=== PATIENT | male | born 1945 | race Caucasian/White ===

== ENCOUNTER 2017-09-18 22:37 | Inpatient (IN) | payer MEDICARE ==
[~2017-09-18] VITALS: Ht 182.9 cm; Wt 149.7 kg
[2017-09-18] MEDS ORDERED: TETANUS, DIPHTHERIA, PERTUSSIS VAC/PF 0.5ML (>7YR OLD) IM ONE (23:45)
[2017-09-19 00:30] LABS: ETHANOL BLOOD < 10 mg/dL
[2017-09-19 00:35] LABS: CREATINE KINASE 165 IU/L (39-308)
[2017-09-19 00:40] LABS: BASOPHILS % 0.4 % (0.0-2.0); HEMATOCRIT. 41.3 % (42.0-52.0); HEMOGLOBIN. 13.9 g/dL (14.0-18.0); LYMPHOCYTES % 7.9 % (20.0-50.0); MEAN CORPUSCULAR HEMOGLOBIN 32.5 pg (28.0-32.0); MEAN CORPUSCULAR VOLUME 96.4 fL (80.0-94.0); MEAN PLATELET VOLUME 8.4 fl (7.4-10.4); MONOCYTES % 7.4 % (2.0-8.0); NEUTROPHILS % 82.3 % (40.0-76.0); PLATELET 273 x1000/uL (130-400); RED BLOOD CELL COUNT 4.28 mill/uL (4.7-6.1); RED CELL DISTRIBUTION WIDTH 15.1 % (11.6-14.6)
[2017-09-19 00:52] LABS: CHLORIDE 111 mEq/L (98-107)
[2017-09-19 02:24] LABS: CLARITY URINE CLEAR (CLEAR); COLOR URINE YELLOW (YELLOW); KETONES URINE NEGATIVE (NEGATIVE); LEUKOCYTE ESTERASE URINE NEGATIVE (NEGATIVE); NITRITE URINE NEGATIVE (NEGATIVE); OCCULT BLOOD URINE NEGATIVE (NEGATIVE); PROTEIN URINE 3+ (NEGATIVE)
[2017-09-19 02:33] LABS: *AMPHETAMINES SCREEN URINE NEGATIVE (NEGATIVE)
[2017-09-19 02:34] LABS: *BARBITURATES SCREEN URINE NEGATIVE (NEGATIVE); *BENZODIAZEPINES SCREEN URINE PRESUMTIVE POSITIVE (NEGATIVE); *COCAINE SCREEN URINE NEGATIVE (NEGATIVE); METHADONE URINE SCREEN NEGATIVE (NEGATIVE); OPIATES URINE SCREEN NEGATIVE (NEGATIVE)
[2017-09-19 02:35] LABS: CANNABINOID URINE SCREEN NEGATIVE (NEGATIVE); PHENCYCLIDINE URINE SCREEN NEGATIVE (NEGATIVE)
[2017-09-19] MEDS ORDERED: VANCOMYCIN 1,500 MG in DEXT 5% WATER 250 ML IV SCH (04:00)
[2017-09-19] MEDS ORDERED: PIPERACILLIN/TAZOBACTAM 3.375GM/50ML PREMIX IV ONE (04:00)
[2017-09-19] MEDS ORDERED: PIPERACILLIN SODIUM/TAZOBACTAM 4.5 G in DEXT 5% WATER 100 ML IV SCH (04:00)
[2017-09-19] MEDS ORDERED: PIPERACILLIN/TAZ 3.375G PREMIX 50 ML IV NR (04:15)
[2017-09-19] MEDS ORDERED: ALBUTEROL (0.083%) 2.5MG/3ML NEB HHN STA (10:33)
[2017-09-19] MEDS ORDERED: CLONIDINE 0.1MG TABLET PO PRN (15:45)
[2017-09-19] MEDS ORDERED: IPRATROPIUM/ALBUTEROL 0.5-3(2.5)MG/3ML NEB INH PRN (15:45)
[2017-09-19] MEDS ORDERED: HYDROCODONE/ACETAMINOPHEN 5/325MG TABLET PO PRN (15:45)
[2017-09-19] MEDS ORDERED: ACETAMINOPHEN 325MG TABLET PO PRN (15:45)
[2017-09-19] MEDS ORDERED: ONDANSETRON HCL 4MG/2ML VIAL IV PRN (15:45)
[2017-09-19 16:30] VITALS: BP 136/68
[2017-09-19] MEDS ORDERED: LEVO150T8 PO (16:46)
[2017-09-19 16:51] LABS: HEMATOCRIT 43.4 % (42.0-52.0); HEMOGLOBIN 14.4 g/dL (14.0-18.0); MEAN CORPUSCULAR HEMOGLOBIN 32.2 pg (28.0-32.0); MEAN CORPUSCULAR VOLUME 96.8 fL (80.0-94.0); PLATELET 308 x1000/uL (130-400); RED BLOOD CELL COUNT 4.48 mill/uL (4.7-6.1); RED CELL DISTRIBUTION WIDTH 15.4 % (11.6-14.6)
[2017-09-19 16:53] LABS: CHLORIDE 111 mEq/L (98-107)
[2017-09-19] MEDS ORDERED: ALBU18HF2 IH (16:53)
[2017-09-19] MEDS ORDERED: GABA-529 PO (16:53)
[2017-09-19] MEDS ORDERED: IPRA42SP NS (16:53)
[2017-09-19 16:59] VITALS: BP 136/68
[2017-09-19] MEDS ORDERED: ACET5SOL2 PO (16:59)
[2017-09-19] MEDS ORDERED: SODI15OR4 MT (16:59)
[2017-09-19] MEDS ORDERED: SODIUM CHLORIDE 0.9% 1,000 ML IV SCH (18:00)
[2017-09-19 18:07] LABS: BG BASE EXCESS -0.9 mmol/L (-2.0-2.0); BG CARBOXYHEMOGLOBIN 2.1 % (0.5-1.5); BG DEOXYHEMOGLOBIN 6.7 % (0.0-5.0); BG FRACTION INSPIRED OXYGEN 36; BG METHEMOGLOBIN 0.3 % (0.0-1.5); BG OXYGEN SATURATION 93.1 % (92.0-98.5); BG OXYHEMOGLOBIN 90.9 % (94.0-97.0); BG PCO2 40.7 mmHg (35.0-45.0); BG PH 7.389 (7.350-7.450); BG PO2 64.7 mmHg (75.0-100.0); BG SAMPLE SITE RIGHT RADIAL; BG TOTAL HEMOGLOBIN 15.7 g/dL (12.0-18.0); BG VENT MODE NASAL CANNULA
[2017-09-19 18:07] LABS: CREATINE KINASE MB FRACTION 5.8 ng/mL (0.5-3.6)
[2017-09-19 18:27] LABS: D-DIMER 1.04 mg/L FEU (<0.50); INR 1.1; PROTHROMBIN TIME 11.3 sec (9.4-11.6)
[2017-09-19] MEDS: METHYLPREDNISOLONE SOD SUCC 40 MG/ML VIAL IV SCH (19:14)
[2017-09-19 20:00] VITALS: BP 113/61
[2017-09-19] MEDS ORDERED: LEVOFLOXACIN 500MG PREMIX 100 ML IV SCH (20:00)
[2017-09-19] MEDS: ENOXAPARIN 40MG/0.4ML SYR SUBCUT SCH (20:49)
[2017-09-19] MEDS: FAMOTIDINE 20MG/2ML VIAL IV SCH (20:49)
[2017-09-19] MEDS: IPRATROPIUM/ALBUTEROL 0.5-3(2.5)MG/3ML NEB INH SCH (21:28)
[2017-09-20] VITALS: BP 148/57
[2017-09-20] MEDS: IPRATROPIUM/ALBUTEROL 0.5-3(2.5)MG/3ML NEB INH SCH ×7 (00:40→21:44)
[2017-09-20] MEDS: METHYLPREDNISOLONE SOD SUCC 40 MG/ML VIAL IV SCH ×3 (02:00→17:14)
[2017-09-20 04:00] VITALS: BP 124/66
[2017-09-20 06:06] LABS: BASOPHILS % 0.3 % (0.0-2.0); EOSINOPHILS % 0.2 % (0.0-5.0); HEMATOCRIT. 41.2 % (42.0-52.0); HEMOGLOBIN. 13.8 g/dL (14.0-18.0); LYMPHOCYTES % 8.9 % (20.0-50.0); MEAN CORPUSCULAR HEMOGLOBIN 32.2 pg (28.0-32.0); MEAN CORPUSCULAR VOLUME 96.1 fL (80.0-94.0); MEAN PLATELET VOLUME 8.4 fl (7.4-10.4); NEUTROPHILS % 84.6 % (40.0-76.0); PLATELET 315 x1000/uL (130-400); RED BLOOD CELL COUNT 4.29 mill/uL (4.7-6.1); RED CELL DISTRIBUTION WIDTH 15.2 % (11.6-14.6)
[2017-09-20 06:42] LABS: CHLORIDE 108 mEq/L (98-107)
[2017-09-20 06:52] LABS: HDL CHOLESTEROL 50 mg/dL (40-59)
[2017-09-20 06:54] LABS: LDL CHOLESTEROL 83 mg/dL (5-100)
[2017-09-20 08:00] VITALS: BP 139/82
[2017-09-20] MEDS: FAMOTIDINE 20MG/2ML VIAL IV SCH ×2 (09:15→21:17)
[2017-09-20] MEDS: ENOXAPARIN 40MG/0.4ML SYR SUBCUT SCH ×2 (09:16→21:17)
[2017-09-20 12:00] VITALS: BP 156/79
[2017-09-20 16:00] VITALS: BP_SYST 112; BP_SYST 145; BP_DIAS 75; BP_DIAS 84
[2017-09-20] MEDS ORDERED: FUROSEMIDE 40MG/4ML VIAL IVP SCH (16:00)
[2017-09-20 20:00] VITALS: BP 129/87
[2017-09-20] MEDS: SILVER SULFADIAZINE 1% CREAM 50GM TOP SCH (21:18)
[2017-09-20] MEDS: LEVOFLOXACIN 500MG TABLET PO SCH (21:51)
[2017-09-21] VITALS (8 sets, daily range): BP systolic 109–138; BP diastolic 67–92
[2017-09-21] MEDS: METHYLPREDNISOLONE SOD SUCC 40 MG/ML VIAL IV SCH ×3 (02:30→19:12)
[2017-09-21] MEDS: IPRATROPIUM/ALBUTEROL 0.5-3(2.5)MG/3ML NEB INH SCH ×5 (05:00→21:07)
[2017-09-21 08:11] LABS: HEMATOCRIT. 41.5 % (42.0-52.0); HEMOGLOBIN. 13.7 g/dL (14.0-18.0); MEAN CORPUSCULAR HEMOGLOBIN 31.9 pg (28.0-32.0); MEAN CORPUSCULAR VOLUME 96.3 fL (80.0-94.0); MEAN PLATELET VOLUME 8.3 fl (7.4-10.4); PLATELET 265 x1000/uL (130-400); RED BLOOD CELL COUNT 4.31 mill/uL (4.7-6.1); RED CELL DISTRIBUTION WIDTH 15.1 % (11.6-14.6)
[2017-09-21 08:30] LABS: CHLORIDE 110 mEq/L (98-107)
[2017-09-21] MEDS: ENOXAPARIN 40MG/0.4ML SYR SUBCUT SCH ×2 (09:07→21:17)
[2017-09-21] MEDS: SILVER SULFADIAZINE 1% CREAM 50GM TOP SCH (09:13)
[2017-09-21] MEDS: FAMOTIDINE 20MG/2ML VIAL IV SCH ×2 (10:08→21:18)
[2017-09-21] MEDS: FUROSEMIDE 40MG TABLET PO SCH ×2 (11:15→12:12)
[2017-09-21] MEDS: LEVOFLOXACIN 500MG TABLET PO SCH (21:18)
[2017-09-22 03:23] LABS: PLATELET ESTIMATE NORMAL
== END 2017-09-21 22:16 | DRG 189 ==
LOC: ER 22:51 → 7WST 09-19 06:41 → OBSVTOIN 09-19 06:41 → INTOOBSV 09-19 06:41 → ENRESERV 09-19 14:12 → SUPCPDRO 09-19 15:36
PROVIDERS: ADMIT Internal Medicine; ATTEND Internal Medicine
PROC: 2W3MX1Z Immobilization of Left Lower Extremity using Splint (ICD-10-PCS; principal; 2017-09-19)
DX: J96.00 Acute respiratory failure, unspecified whether with hypoxia or hypercapnia (principal); J18.9 Pneumonia, unspecified organism; J44.0 Chronic obstructive pulmonary disease with (acute) lower respiratory infection; E66.01 Morbid (severe) obesity due to excess calories; Z68.41 Body mass index [BMI] 40.0-44.9, adult; J44.1 Chronic obstructive pulmonary disease with (acute) exacerbation; W19.XXXA Unspecified fall, initial encounter; S92.912A Unspecified fracture of left toe(s), initial encounter for closed fracture; E03.9 Hypothyroidism, unspecified; R73.9 Hyperglycemia, unspecified; R79.89 Other specified abnormal findings of blood chemistry; S96.911A Strain of unspecified muscle and tendon at ankle and foot level, right foot, initial encounter; E66.9 Obesity, unspecified; S92.402A Displaced unspecified fracture of left great toe, initial encounter for closed fracture; I10 Essential (primary) hypertension; S91.119A Laceration without foreign body of unspecified toe without damage to nail, initial encounter; Y93.89 Activity, other specified; Y92.098 Other place in other non-institutional residence as the place of occurrence of the external cause; Y99.8 Other external cause status; Z90.5 Acquired absence of kidney
CPT/HCPCS: 36415; 36600; 70450; 71045; 72170; 73610; 73620; 80048; 80053; 80061; 80305; 81003; 82375; 82550; 82553; 82805; 82962; 83036; 83605; 83880; 84443; 84484; 85025; 85027; 85379; 85610; 87040; 90471; 90715; 93005; 93306; 94640; 96365; 96366; 96367; 97022; 97162; 99285; G0482; J1650; J1940; J1956; J2543; J2920; J3370; J3490; J7030; J7060; J7611; J7620